=== PATIENT | male | born 2000 | race Caucasian/White ===

== ENCOUNTER 2020-11-19 13:17 | Emergency (ER) | payer OTHER ==
[~2020-11-19 13:17] MED LIST: IBU800 MG PO
[2020-11-19 16:04] LABS: CORONAVIRUS 2019 SARS-COV-2 NEGATIVE (NEGATIVE); INFLUENZA A NAA NEGATIVE (NEGATIVE)
== END 2020-11-19 17:12 | disposition home or self-care (01) ==
LOC: FER 13:17
PROVIDERS: Emergency Medicine
DX: B34.9 Viral infection, unspecified (principal); Z20.822 Contact with and (suspected) exposure to COVID-19
CPT/HCPCS: 87880; 99283; U0002